=== PATIENT | male | born 1990 | race Caucasian/White ===

== ENCOUNTER 2022-12-12 03:06 | Emergency (ER) | payer OTHER ==
[~2022-12-12] VITALS: Ht 182.9 cm; Wt 111.1 kg
--- NOTE | 2022-12-12 03:09 | NUR ---
EPIGASTRIC PAIN, GERD X 2 DAYS, 10 PAIN, BLOOD IN STOOL X4 DAYS
[2022-12-12 03:20] VITALS: BP_SYST 121; PULSE 71; RESP 16; TEMP 96.9; O2SAT 95
--- NOTE | 2022-12-12 03:20 | NUR ---
PATIENT PLACED IN ED BED 2, REPORT GIVEN TO MATT
--- NOTE | 2022-12-12 03:30 | NUR ---
FIRST CONTACT WITH PT. ASSESSMENT COMPLETED. AWAIITING ADDITIONAL EVAL AND ORDERS.
[2022-12-12] MEDS ORDERED: PANTOPRAZOLE SODIUM 40 MG/VIAL (PROTONIX) IVP ONE (03:45)
[2022-12-12] MEDS ORDERED: NACL 0.9% 1,000 ML IV ONE (03:45)
[2022-12-12] MEDS ORDERED: MAG-AL HYDROX/SIMETH 30 ML UDC PO ONE (03:45)
[2022-12-12] MEDS ORDERED: ONDANSETRON HCL 4 MG/2 ML VIAL IVP ONE ×2 (03:45)
[2022-12-12] MEDS ORDERED: MORPHINE 4 MG INJ. 4 MG/ML VIAL IVP ONE (05:00)
--- NOTE | 2022-12-12 05:00 | NUR ---
PT RESTING. FAMILY AT BEDSIDENO DISTRESS NOTED.
[2022-12-12 05:06] LABS: BASOPHILS % (AUTO) 0.5 % (0.0-2.0); EOSINOPHILS # (AUTO) 0.2 K/uL (0.0-0.4); EOSINOPHILS % (AUTO) 2.3 % (0.0-4.0); HEMATOCRIT 42.4 % (36-54); HEMOGLOBIN 14.1 g/dL (14.0-18.0); LYMPHOCYTES # (AUTO) 3.8 K/uL (1.0-5.5); MEAN CORPUSCULAR HEMOGLOBIN 28 pg (27-31); MEAN CORPUSCULAR HGB CONC 33 % (32-36); MEAN CORPUSCULAR VOLUME 83 fL (79.0-98.0); MONOCYTES # (AUTO) 0.6 K/uL (0.0-1.0); MONOCYTES % (AUTO) 6.8 % (1.7-9.3); NEUTROPHILS # (AUTO) 3.9 K/uL (1.8-7.7); NEUTROPHILS % (AUTO) 45.4 % (40.0-70.0); PLATELET COUNT (AUTO) 213 K/uL (130-430); RED CELL DISTRIBUTION WIDTH 13.6 % (9.0-15.0); WHITE BLOOD COUNT (AUTO) 8.5 K/uL (4.8-10.8)
[2022-12-12 05:23] LABS: CALCIUM 9.4 mg/dL (8.4-11.0); CREATININE 0.97 mg/dL (0.55-1.30)
[2022-12-12 05:27] LABS: ALBUMIN 3.7 g/dL (3.4-4.8); TOTAL BILIRUBIN 0.6 mg/dL (0.0-1.0)
[2022-12-12] MEDS ORDERED: LORazepam 2 MG/ML VIAL IVP ONE (05:30)
--- NOTE | 2022-12-12 05:30 | NUR ---
MD AT BEDSIDE TO DISCUSS FINDINGS AND PLAN OF CARE.
[2022-12-12] MEDS ORDERED: SUCR1TAB2 PO (05:36)
[2022-12-12] MEDS ORDERED: ONDA-8 TL (05:36)
[2022-12-12 06:26] VITALS: BP_SYST 122; PULSE 82; RESP 18; TEMP 94; O2SAT 96
--- NOTE | 2022-12-12 06:33 | NUR ---
Patient given written and verbal discharge instructions and verbalizes understanding. ER MDVSEVERIANOS discussed with patient the results and treatment provided. Patient in stable condition. ID arm band removed. IV catheter removed intact and dressing applied, no active bleeding. Rx of ZOFRAN AND CARAFATE given. Patient educated on pain management and to follow up with PMD. Pain Scale . Opportunity for questions provided and answered. Medication side effect fact sheet provided.
== END 2022-12-12 06:33 | disposition home or self-care (01) ==
LOC: SED 03:06
DX: R10.13 Epigastric pain (principal); R07.9 Chest pain, unspecified; R11.0 Nausea; Z87.19 Personal history of other diseases of the digestive system; Z79.899 Other long term (current) drug therapy
CPT/HCPCS: 99285; 96374; 96375; 71045; 96361; 80053; 83690; 85025; 84484; 36415; 93005; J2060; J2405; C9113; J2270; J7030